=== PATIENT | female | born 1995 | race Two or more races ===

== ENCOUNTER → 2017-02-02 | Outpatient (CLI) | payer OTHER ==
--- NOTE | 2017-02-02 15:26 | RAD ---
Indication: Cough and upper chest pain. Time of exam 1518 hours. FINDINGS: The heart size is normal. The lungs are clear. No pleural effusion or pneumothorax is identified. The pulmonary vascularity is normal. IMPRESSION: No acute abnormality detected.
== END | disposition home or self-care (01) ==
LOC: DXRADRC 15:13
PROVIDERS: ATTEND Physician Assistant Medical
DX: R07.89 Other chest pain (principal); R05 Cough
CPT/HCPCS: 71020

== ENCOUNTER 2017-08-21 12:11 | Emergency (ER) | payer OTHER ==
[~2017-08-21] VITALS: Ht 160 cm; Wt 54.4 kg
[2017-08-21 12:15] VITALS: BP 124/74
[2017-08-21] MEDS ORDERED: IV NORMAL SALINE 1,000ML 1,000 ML IV ONE (13:00)
[2017-08-21] MEDS ORDERED: KETOROLAC 30 MG/ML VIAL. IV ONE (13:15)
[2017-08-21] MEDS ORDERED: IOHEXOL 300 MG/ML 75 ML VIAL. IV ONE (13:15)
[2017-08-21] MEDS ORDERED: CONTRAST GIVEN MC PRN (13:15)
[2017-08-21] MEDS ORDERED: ONDANSETRON PF 4 MG/2 ML VIAL. IV ONE (13:15)
[2017-08-21 13:59] LABS: BASO # 0.1 x10^3/uL (0.0-0.2); BASO % 1 % (0-3); EOS # 0.3 x10^3/uL (0.0-0.7); EOS % 2 % (0-3); HEMATOCRIT 43.8 % (36.0-47.0); HEMOGLOBIN 15.1 g/dL (12.0-15.5); LYMPH # 3.8 x10^3/uL (1.0-4.8); LYMPH % 30 % (24-48); MEAN CORPUSCULAR HEMOGLOBIN 29 pg (25-35); MEAN CORPUSCULAR HGB CONC 34 g/dL (31-37); MEAN CORPUSCULAR VOLUME 84 fL (79-100); MONO # 0.9 x10^3/uL (0.0-1.1); MONO % 7 % (0-9); NEUT # 7.9 x10^3uL (1.8-7.7); NEUT % 61 % (31-73); PLATELET COUNT 304 x10^3/uL (140-400); RED BLOOD COUNT 5.19 x10^6/uL (3.50-5.40); RED CELL DISTRIBUTION WIDTH 13.1 % (11.5-14.5)
[2017-08-21 14:11] LABS: BACTERIA,URINE MANY /HPF (0-FEW); BILIRUBIN,URINE NEG (NEG); CLARITY,URINE CLOUDY; COLOR,URINE YELLOW; GLUCOSE,URINE NEG (NEG); NITRITE,URINE NEG (NEG); RBC,URINE RARE /HPF (0-2); SQUAMOUS EPITHELIAL CELL,UR MANY /LPF; UROBILINOGEN,URINE 0.2 mg/dL (0.2 mg/dL)
[2017-08-21 14:12] LABS: ALBUMIN 4.7 g/dL (3.4-5.0); ALBUMIN/GLOBULIN RATIO 1.2 (1.0-1.7); CALCIUM 9.7 mg/dL (8.5-10.1); CREATININE 0.9 mg/dL (0.6-1.0); GFR 78.3; POTASSIUM 3.7 mmol/L (3.5-5.1); TOTAL BILIRUBIN 0.4 mg/dL (0.2-1.0); TOTAL PROTEIN 8.5 g/dL (6.4-8.2)
--- NOTE | 2017-08-21 14:26 | RAD ---
CT ABD PELV W/ IV CONTRST ONLY History:Right-sided abdominal pain for one week Technique: After administration of intravenous contrast, CT imaging was performed of the abdomen and pelvis, multiplanar reconstruction images submitted. No oral contrast was given as per request. Exposure: One or more of the following individualized dose reduction techniques were utilized for this exam: 1. Automated exposure control.2. Adjustment of the mA and/or KV according to patient size.3. Use of iterative reconstruction technique. Contrast: 75 cc Omnipaque 300 Comparison: None Findings: Accurate evaluation of bowel is somewhat limited without oral contrast. There is no significant bowel dilatation or free air. There is a trace quantity of dependent free fluid in the pelvis. The majority of appendix is visualized and appears normal, although uncertain if the tip is entirely seen. Both kidneys enhance, no hydronephrosis. There is no adrenal nodularity. No focal abnormality is identified of the liver, spleen, pancreas, adrenal glands, gallbladder. Impression: 1.Majority of the appendix is visualized and appears normal although difficult to identify the tip on this exam. There is a trace quantity of dependent free fluid in the pelvis which is nonspecific.
[2017-08-21] MEDS ORDERED: IBUP600T16 PO (14:48)
[2017-08-21] MEDS ORDERED: HYOS0.1265 SL (14:48)
--- NOTE | 2017-08-21 14:48 | PHYS DOC ---
Adult General Chief Complaint Chief Complaint: ABDOMINAL PAIN HPI HPI Patient is a 19-year-old female who presents here today complaining of right upper quadrant pain has been there for approximately 2 days now. Patient reports the pain is constant noncolicky. Patient has any change with meals exertion urination. Patient has any pain with movement. Patient has any fevers shakes chills. Patient is nauseous but no vomiting or diarrhea. Patient has a dysuria frequency urgency hematuria. Review of systems: Constitutional: Denies fever or chills Eyes: Denies change in visual acuity, redness, or eye pain HENT: Denies nasal congestion or sore throat Respiratory: Denies cough or shortness of breath All other systems were reviewed and found to be within normal limits, except as documented in this note. Physical exam: Constitutional: Well developed, well nourished, no acute distress, non-toxic appearance. HENT: Normocephalic, atraumatic, bilateral external ears normal, nose normal. Eyes: PERRLA, EOMI, conjunctiva normal, no discharge. Neck: Normal range of motion, no tenderness, supple, no stridor. Cardiovascular: Heart rate regular rhythm, Lungs & Thorax: Bilateral breath sounds clear to auscultation Abdomen: No abdominal distention. Skin: Warm, dry, no erythema, no rash. Back: Normal spinal curvature Extremities: No tenderness, no cyanosis, no clubbing, ROM intact, no edema. Neurologic: Alert and oriented X 3, normal motor function, normal sensory function, no focal deficits noted. Psychologic: Affect normal, judgement normal, mood normal. Patient's ER physical exam was most unremarkable: Patient is tenderness to palpation to her right upper quadrant and right flank region. Patient has no rebound or guarding. Patient does not present with any signs or symptoms O be consistent with an acute surgical abdomen. CT abdomen and pelvis unremarkable for any acute pathology. Appendix is normal. Kidneys unremarkable. Gallbladder normal. Labs reviewed: Assessment and plan: 1. Right upper quadrant right flank pain: Etiology unclear however patient's ER workup is unremarkable. Have recommended that the patient follow-up with her primary care physician if the pain persists for more than 2-3 days. She may need an outpatient HIDA scan. Patient be sent home with Motrin and Levsin to assist her. Current Medications Current Medications Current Medications Medications (Trade) Dose Ordered Sig/Neri Start Time Stop Time Status Last Admin Dose Admin Info (Do NOT chart on this entry -- for MONITORING) 1 each PRN DAILY PRN 08/21/17 13:15 08/23/17 13:14 Iohexol (Omnipaque 300 Mg/ml) 75 ml 1X ONCE 08/21/17 13:15 08/21/17 13:16 DC Ketorolac Tromethamine (Toradol) 30 mg 1X ONCE 08/21/17 13:15 08/21/17 13:16 DC 08/21/17 13:56 30 MG Ondansetron HCl (Zofran) 4 mg 1X ONCE 08/21/17 13:15 08/21/17 13:16 DC 08/21/17 13:57 4 MG Sodium Chloride 1,000 ml @ 1,000 mls/hr 1X ONCE 08/21/17 13:00 08/21/17 13:59 DC 08/21/17 13:56 1,000 MLS/HR Allergies Allergies Allergies Coded Allergies Type Severity Reaction Last Updated Verified No Known Drug Allergies 08/21/17 No Current Patient Data Lab Results Laboratory Tests Test 08/21/17 13:42 08/21/17 13:48 White Blood Count 13.0 x10^3/uL (4.0-11.0) H Red Blood Count 5.19 x10^6/uL (3.50-5.40) Hemoglobin 15.1 g/dL (12.0-15.5) Hematocrit 43.8 % (36.0-47.0) Mean Corpuscular Volume 84 fL (79-100) Mean Corpuscular Hemoglobin 29 pg (25-35) Mean Corpuscular Hemoglobin Concent 34 g/dL (31-37) Red Cell Distribution Width 13.1 % (11.5-14.5) Platelet Count 304 x10^3/uL (140-400) Neutrophils (%) (Auto) 61 % (31-73) Lymphocytes (%) (Auto) 30 % (24-48) Monocytes (%) (Auto) 7 % (0-9) Eosinophils (%) (Auto) 2 % (0-3) Basophils (%) (Auto) 1 % (0-3) Neutrophils # (Auto) 7.9 x10^3uL (1.8-7.7) H Lymphocytes # (Auto) 3.8 x10^3/uL (1.0-4.8) Monocytes # (Auto) 0.9 x10^3/uL (0.0-1.1) Eosinophils # (Auto) 0.3 x10^3/uL (0.0-0.7) Basophils # (Auto) 0.1 x10^3/uL (0.0-0.2) Sodium Level 142 mmol/L (136-145) Potassium Level 3.7 mmol/L (3.5-5.1) Chloride Level 107 mmol/L (98-107) Carbon Dioxide Level 23 mmol/L (21-32) Anion Gap 12 (6-14) Blood Urea Nitrogen 14 mg/dL (7-20) Creatinine 0.9 mg/dL (0.6-1.0) Estimated GFR (Cockcroft-Gault) 78.3 BUN/Creatinine Ratio 16 (6-20) Glucose Level 86 mg/dL (70-99) Calcium Level 9.7 mg/dL (8.5-10.1) Total Bilirubin 0.4 mg/dL (0.2-1.0) Aspartate Amino Transferase (AST) 17 U/L (15-37) Alanine Aminotransferase (ALT) 20 U/L (14-59) Alkaline Phosphatase 68 U/L (46-116) Total Protein 8.5 g/dL (6.4-8.2) H Albumin 4.7 g/dL (3.4-5.0) Albumin/Globulin Ratio 1.2 (1.0-1.7) Lipase 176 U/L (73-393) Urine Collection Type Unknown Urine Color Yellow Urine Clarity Cloudy Urine pH 5.5 Urine Specific [place] 1.020 Urine Protein 100 mg/dl (NEG-TRACE) Urine Glucose (UA) Neg mg/dL (NEG) Urine Ketones (Stick) Trace mg/dL (NEG) Urine Blood Neg (NEG) Urine Nitrite Neg (NEG) Urine Bilirubin Neg (NEG) Urine Urobilinogen Dipstick 0.2 mg/dL (0.2 mg/dL) Urine Leukocyte Esterase Trace (NEG) Urine RBC Rare /HPF (0-2) Urine WBC 1-4 /HPF (0-4) Urine Squamous Epithelial Cells Many /LPF Urine Bacteria Many /HPF (0-FEW) Urine Mucus Marked /LPF EKG EKG [] Radiology/Procedures Radiology/Procedures [] Course & Med Decision Making Course & Med Decision Making Pertinent Labs and Imaging studies reviewed. (See chart for details) [] Dragon Disclaimer Dragon Disclaimer This electronic medical record was generated, in whole or in part, using a voice recognition dictation system. Departure Departure: Impression: Primary Impression: Right upper quadrant abdominal pain Disposition: HOME, SELF-CARE Condition: IMPROVED Referrals: JITENDRA EL (PCP) Patient Instructions: Abdominal Pain (Nonspecific) Additional Instructions: The cause of your abdominal pain today is unclear. You need to follow-up with your family doctor for further evaluation. Sometimes he might have a completely normal appearing gallbladder on her tests in the your gallbladder might not be functioning appropriately. Your doctor may want to order an outpatient HIDA scan if your pain persists. Scripts Hyoscyamine Sulfate (LEVSIN-SL) 0.125 Mg Tab.subl 1-2 TAB SL PRN Q4HRS Y for cramps, #20 TAB 1 Refill Prov: PAULA BLUE MD 08/21/17 Ibuprofen (IBUPROFEN) 600 Mg Tablet 600 MG PO QID Y for PAIN, #20 Prov: PAULA BLUE MD 08/21/17 PAULA BLUE MD Aug 21, 2017 14:48
== END 2017-08-21 14:57 | disposition home or self-care (01) ==
LOC: ER 12:11
DX: R10.11 Right upper quadrant pain (principal); R11.0 Nausea; R30.0 Dysuria; R39.15 Urgency of urination; R35.0 Frequency of micturition
CPT/HCPCS: 36415; 74177; 80053; 81001; 81025; 83690; 85025; 87086; 96361; 96374; 96375; 99285; J1885; J2405; J7030

== ENCOUNTER → 2017-09-07 | Outpatient (CLI) | payer OTHER ==
[2017-08-21 12:15] VITALS: BP 124/74
[~2017-09-07] MED LIST: HYOS0.1265 SL; IBUP600T16 PO
--- NOTE | 2017-09-07 08:59 | RAD ---
Indication: Right upper quadrant pain for 3 weeks. Technique: Right upper quadrant ultrasound was performed. No comparison is available. Findings: Visualized pancreas is unremarkable. IVC is patent. Liver is normal in size and echogenicity. Gallbladder is negative. Common bile duct is within normal limits at 4 mm. Right kidney is without hydronephrosis or mass. Impression: Normal ultrasound of the right upper quadrant.
== END | disposition home or self-care (01) ==
LOC: US 07:45
PROVIDERS: ATTEND Physician Assistant Medical
DX: R10.11 Right upper quadrant pain (principal); F17.200 Nicotine dependence, unspecified, uncomplicated; Z72.89 Other problems related to lifestyle
CPT/HCPCS: 76705

== ENCOUNTER 2017-11-28 13:14 | Emergency (ER) | payer OTHER ==
[2017-11-28 13:20] VITALS: BP 111/71
[2017-11-28] MEDS ORDERED: LIDOCAINE 1% Multi-Dose 20 ML VIAL. IJ ONE (14:15)
[2017-11-28] MEDS ORDERED: IBUP800T19 PO (14:49)
--- NOTE | 2017-11-28 14:50 | PHYS DOC ---
Past History Past Medical History: No Pertinent History Past Surgical History: Other Alcohol Use: Occasionally Drug Use: None Adult General Chief Complaint Chief Complaint: SKIN PROBLEM HPI HPI 22-year-old male patient states she has redness and painful area in medial side of right thigh for 5 days and seen by her primary care physician 4 days ago and treated with Bactrim without improvement of condition. Patient states she had pus drainage of affected area since this morning. Patient rated her pain 8/10. Patient states she had temperature of 100 last night. Patient denies abdominal pain, nausea and vomiting, . Review of Systems Review of Systems Constitutional: Denies fever or chills [] Eyes: Denies change in visual acuity, redness, or eye pain [] HENT: Denies nasal congestion or sore throat [] Respiratory: Denies cough or shortness of breath [] Cardiovascular: No additional information not addressed in HPI [] GI: Denies abdominal pain, nausea, vomiting, bloody stools or diarrhea [] : Denies dysuria or hematuria [] Musculoskeletal: Denies back pain or joint pain [] Integument: Denies rash or skin lesions [] Neurologic: Denies headache, focal weakness or sensory changes [] Endocrine: Denies polyuria or polydipsia [] All other systems were reviewed and found to be within normal limits, except as documented in this note. Current Medications Current Medications Current Medications Medications (Trade) Dose Ordered Sig/Neri Start Time Stop Time Status Last Admin Dose Admin Lidocaine HCl 20 ml 1X ONCE 11/28/17 14:15 11/28/17 14:16 DC Allergies Allergies Allergies Coded Allergies Type Severity Reaction Last Updated Verified No Known Drug Allergies 08/21/17 No Physical Exam Physical Exam Constitutional: Well developed, well nourished, mild distress, non-toxic appearance. [] HENT: Normocephalic, atraumatic, bilateral external ears normal, oropharynx moist, no oral exudates, nose normal. [] Eyes: PERRLA, EOMI, conjunctiva normal, no discharge. [] Neck: Normal range of motion, no tenderness, supple, no stridor. [] Cardiovascular:Heart rate regular rhythm, no murmur [] Lungs & Thorax: Bilateral breath sounds clear to auscultation [] Abdomen: Bowel sounds normal, soft, no tenderness, no masses, no pulsatile masses. [] Skin: 5 x 5 cm erythema in upper medial side of right thigh central fluctuation and tenderness and puncture wound and pus drainage Back: No tenderness, no CVA tenderness. [] Extremities:No cyanosis, no clubbing, ROM intact, no edema. [] Neurologic: Alert and oriented X 3, normal motor function, normal sensory function, no focal deficits noted. [] Psychologic: Affect normal, judgement normal, mood normal. [] EKG EKG [] Radiology/Procedures Radiology/Procedures [] Course & Med Decision Making Course & Med Decision Making Pertinent Labs and Imaging studies reviewed. (See chart for details) [] Dragon Disclaimer Dragon Disclaimer This electronic medical record was generated, in whole or in part, using a voice recognition dictation system. Incision and Drainage Indication: [Right thigh abscess] Procedure: The patient was positioned appropriately and the skin over the incision site was [PREP FOR PROCEDURE:]. Local anesthesia was [1% lidocaine:]. An incision was then made over the [right thigh:] and [small amount:] material was expressed. Loculations were [cleaned:]. The drainage cavity was then [ irrigated and packing was placed]. The patients tetanus status [is up-to-date The patient tolerated the procedure [well:]. Complications: [none] Departure Departure: Impression: Primary Impression: Abscess Disposition: HOME, SELF-CARE (At 1448) Condition: IMPROVED Referrals: JITENDRA EL (PCP) Patient Instructions: Abscess Additional Instructions: Follow-up with your primary care physician or return to ER in 48 hours for removing the packing Continue your home antibiotic Scripts Ibuprofen (IBUPROFEN) 800 Mg Tablet 1 TAB PO TID, #30 TAB Prov: JEROD SAN MD 11/28/17 JEROD SAN MD Nov 28, 2017 14:50
== END 2017-11-28 14:55 | disposition home or self-care (01) ==
LOC: ER 13:14
DX: L02.415 Cutaneous abscess of right lower limb (principal)
CPT/HCPCS: 10060; 99283

== ENCOUNTER 2017-12-02 19:16 | Emergency (ER) | payer OTHER ==
[~2017-12-02] VITALS: Ht 160 cm; Wt 61.7 kg
[~2017-12-02 19:16] MED LIST changes: +IBUP800T19 PO
--- NOTE | 2017-12-02 19:21 | ED.ADGEN ---
Past History Past Medical History: No Pertinent History Past Surgical History: Other Alcohol Use: Occasionally Drug Use: None Adult General Chief Complaint Chief Complaint ",, I think my cellulitis is worse... HPI HPI Patient is a 22 year old female who presents with above hx and complaints of MRSA cellulitis. Pt. seen earlier on Wednesday for abscess and cellulitis. Packing is still in place. Pt concerned because of continued tenderness at Rt. thigh at site of abscess, cellulitis and pain. Packing removed. Site appears to be healing well. Site repacked and dressed. Pt. to continue antibiotics as directed. Keep follow up as directed. Reassured pt. site is healing well. Unlikely will need further packing after this one is removed. Recommend pt. use an ointment at site and nose. Take [id number] Tylenol and ibuprofen for pain. Given additional 7 days of Bactrim antibiotic. Patient denies any history of immunosuppression. Patient denies any travel or specific ill contacts. Review of Systems Review of Systems Constitutional: Denies fever or chills [] Eyes: Denies change in visual acuity, redness, or eye pain [] HENT: Denies nasal congestion or sore throat [] Respiratory: Denies cough or shortness of breath [] Cardiovascular: No additional information not addressed in HPI [] GI: Denies abdominal pain, nausea, vomiting, bloody stools or diarrhea [] : Denies dysuria or hematuria [] Musculoskeletal: Denies back pain or joint pain [] Integument: Denies rash or skin lesions []except findings of cellulitis right thigh Neurologic: Denies headache, focal weakness or sensory changes [] Endocrine: Denies polyuria or polydipsia [] All other systems were reviewed and found to be within normal limits, except as documented in this note. Family History Family History Noncontributory Current Medications Current Medications Current Medications Medications (Trade) Dose Ordered Sig/Neri Start Time Stop Time Status Last Admin Dose Admin Acetaminophen (Tylenol) 1,000 mg 1X ONCE 12/02/17 20:00 12/02/17 20:01 DC 12/02/17 19:53 1,000 MG Diphtheria/ Tetanus/Acell Pertussis (Boostrix) 0.5 ml ONCE ONCE 12/02/17 20:00 12/02/17 20:01 DC 12/02/17 19:54 0.5 ML Ibuprofen (Motrin) 600 mg 1X ONCE 12/02/17 20:00 12/02/17 20:01 DC 12/02/17 19:52 600 MG Allergies Allergies Allergies Coded Allergies Type Severity Reaction Last Updated Verified No Known Drug Allergies 08/21/17 No Physical Exam Physical Exam Constitutional: Well developed, well nourished, mild distress, non-toxic appearance. [] HENT: Normocephalic, atraumatic, bilateral external ears normal, oropharynx moist, no oral exudates, nose normal. [] Eyes: PERRLA, EOMI, conjunctiva normal, no discharge. [] Neck: Normal range of motion, no tenderness, supple, no stridor. [] Cardiovascular:Heart rate regular rhythm, no murmur [] Lungs & Thorax: Bilateral breath sounds clear to auscultation [] Abdomen: Bowel sounds normal, soft, no tenderness, no masses, no pulsatile masses. [] Skin: Warm, dry, no erythema, no rash. [] Except cellulitis right thigh-and healing abscess Back: No tenderness, no CVA tenderness. [] Extremities: No tenderness, no cyanosis, no clubbing, ROM intact, no edema. [] Neurologic: Alert and oriented X 3, normal motor function, normal sensory function, no focal deficits noted. [] Psychologic: Affect anxious, judgement normal, mood normal. [] Current Patient Data Vital Signs Vital Signs Date Time Temp Pulse Resp B/P (MAP) Pulse Ox O2 Delivery O2 Flow Rate FiO2 12/02/17 20:09 80 14 107/69 (82) 100 Room Air 12/02/17 19:20 98.5 EKG EKG [] Radiology/Procedures Radiology/Procedures [] Course & Med Decision Making Course & Med Decision Making Pertinent Labs and Imaging studies reviewed. (See chart for details). Continue antibiotics as directed. Bactracin ointment to nares and cellulitis site. Over- the-counter Tylenol and ibuprofen for pain. Follow-up primary care. [] Final Impression Final Impression 1. Cellulitis[]/abscess right thigh Problems: Dragon Disclaimer Dragon Disclaimer This electronic medical record was generated, in whole or in part, using a voice recognition dictation system. JUANCARLOS ORDAZ MD Dec 02, 2017 19:21
[2017-12-02] MEDS ORDERED: BACI3.5O8 OS (19:40)
[2017-12-02] MEDS ORDERED: SULF1TAB24 PO (19:40)
[2017-12-02] MEDS ORDERED: ACETAMINOPHEN 500 MG TABLET PO ONE (20:00)
[2017-12-02] MEDS ORDERED: IBUPROFEN 600 MG TABLET. PO ONE (20:00)
[2017-12-02] MEDS ORDERED: DIPHTH,PERTUSS(ACELL),TET TOX 0.5 ML DISP.SYRIN. VAX IM ONE (20:00)
[2017-12-02 20:09] VITALS: BP 107/69
== END 2017-12-02 20:09 | disposition home or self-care (01) ==
LOC: ER 19:16
DX: L03.115 Cellulitis of right lower limb (principal)
CPT/HCPCS: 90471; 90715; 99283